=== PATIENT | female | born 1965 | race African-American/Black ===

== ENCOUNTER 2022-11-23 13:47 | Emergency (ER) | payer OTHER, MEDICAID, SELFPAY ==
--- NOTE | ~2022-11-23 | XR_ITS ---
EXAMINATION: XR knee RT min 4V DATE: 11/23/2022 14:48 INDICATION: Right knee pain TECHNIQUE: Four views of the right knee were obtained. COMPARISON: None. FINDINGS: Alignment is normal. No fracture or osteochondral lesion. There is mild tricompartmental os teoarthritis characterized by tiny marginal osteophytes. There is also joint space narrowing of the l ateral patellofemoral compartment and medial compartment. No joint effusion/synovitis. Soft tissues are unremarkable. IMPRESSION: 1. Osteoarthritis without acute osseous abnormality. Reviewed, dictated and finalized at location L.
[2022-11-23 14:07] VITALS: BP 162/92; PULSE 88; RESP 16; TEMP 36.6; O2SAT 100
--- NOTE | 2022-11-23 16:04 | ED.LOWEXIN ---
HPI - Extremity Injury (Lower) General Chief Complaint: Extremity Injury, Lower Stated Complaint: R knee pain Time Seen by Provider: 11/23/22 15:55 History of Present Illness HPI Narrative: Patient is a 57-year-old female here for evaluation of atraumatic right knee pain past month. Patient states the pain is severe when she tries to walk or bear weight. She has been able to walk but she states it is painful. Has been using ibuprofen with transient relief, none today. She denies any fevers, chills, nausea or vomiting, pain with passive range of motion of the knee. Related Data Allergies Allergy/AdvReac Type Severity Reaction Status Date / Time amoxicillin Allergy Hives Verified 11/23/22 14:11 diphenhydramine Allergy Agitated Verified 11/23/22 14:11 [From Benadryl] Review of Systems Review of Systems: Gen.: Denies fevers or chills Eyes: Denies eye pain or visual change ENT: Denies congestion Respiratory: Denies shortness of breath or cough CV: Denies chest pain or palpitations GI: Denies abdominal pain nausea, emesis or diarrhea denies burning, urgency, frequency or hematuria Musculoskeletal: Reports right knee pain Neuro: Denies numbness, tingling, weakness or focal weakness Skin: Denies rash Except as documented, all other systems reviewed and negative Exam Narrative: APPEARANCE: Well appearing, no pain in distress, well-nourished. Head: Normocephalic and atraumatic. EYES: PERRLA/EOMI, conjunctivae clear NOSE: No nasal drainage EARS: External ear normal in appearance THROAT: Oropharynx is clear. Mucous membranes are moist. NECK: Supple. No adenopathy, no masses. RESPIRATORY: Airway patent, respirations nonlabored. Clear to auscultation bilaterally, no rales, rhonchi, wheezing. CARDIOVASCULAR: States palpable DP and PT pulses bilaterally. Regular rate and rhythm without murmurs, rubs, or gallops. ABDOMINAL: Normoactive bowel sounds. Soft, nontender, nondistended. No rebound tenderness or guarding. MUSCULOSKELETAL: No bony tenderness to palpation of the patella. She has no pain with passive or active range of motion of the knee. There is moderate swelling around the knee joint. There is no erythema or warmth. No tenderness to palpation of the calf. NEURO: Normal speech. No focal neurologic deficits. SKIN: Skin is warm and dry. No rashes. PSYCHIATRIC: Normal affect/mood. Course Vital Signs Vital signs: Vital Signs Temperature 97.8 F 11/23/22 14:07 Pulse Rate 88 11/23/22 14:07 Respiratory Rate 16 11/23/22 14:07 Blood Pressure 162/92 H 11/23/22 14:07 Pulse Oximetry 100 11/23/22 14:07 Oxygen Delivery Room Air 11/23/22 14:07 Temperature 97.8 F 11/23/22 14:07 Pulse Rate 88 11/23/22 14:07 Respiratory Rate 16 11/23/22 14:07 Blood Pressure 162/92 H 11/23/22 14:07 Pulse Oximetry 100 11/23/22 14:07 Oxygen Delivery Room Air 11/23/22 14:07 MDM - Extremity Injury (Lower) MDM Narrative Medical decision making narrative: Patient presents with 1 month of atraumatic right knee pain. Given history, exam and workup patient likely has arthritis. X-ray does confirm this shows evidence of osteoarthritis without other acute abnormalities. I have low suspicion for fracture, dislocation, significant ligamentous injury, septic arthritis, gout flare, new autoimmune arthropathy, or gonococcal arthropathy. Patient will be discharged home with orthopedic follow-up, treated with Toradol in the ED. Return precautions were discussed and she voiced understanding. Discharge Plan Discharge Clinical Impression: Acute knee pain Patient Disposition: Home, Self-Care Condition: Stable Instructions: Antibiotic Form, Knee Pain (ED) Additional Instructions: Your x-ray shows arthritis which is likely contributing to your pain. Please follow-up with the orthopedist. Continue ibuprofen and Tylenol for pain. Do not take any more ibuprofen or Aleve tonight because the medicine you were
[2022-11-23] MEDS: KETOROLAC 30 MG/ML VIAL (*BKC) IM (16:22)
[2022-11-23 16:31] VITALS: PULSE 80; RESP 14
== END 2022-11-23 16:32 | disposition home or self-care (01) ==
PROVIDERS: Emergency Provider Physician Assistant
DX: M25.561 Pain in right knee (principal)
CPT/HCPCS: 73564; 96372; 99283; J1885